=== PATIENT | female | born 2000 | race Caucasian/White ===

== ENCOUNTER 2018-01-27 22:59 | Emergency (ER) | payer OTHER ==
[2018-01-28 00:13] LABS: ABS Basophils 0.1 10^3/ul (0-0.2); ABS Eosinophils 0.3 10^3/ul (0-0.6); ABS Lymphocytes 2.3 10^3/ul (1.0-4.8); ABS Monocytes 0.7 10^3/ul (0-0.8); ABS Neutrophils 4.5 10^3/ul (1.5-7.7); ABS Nucleated RBC 0 10^3/ul; Eosinophil % 3.9 % (0-6); Hematocrit 38 % (35-47); Hemoglobin 12.7 g/dl (12.0-16.0); Lymphocyte % 28.9 % (25-47); Mean Corpuscular HGB Conc 34 g/dl (31-36); Mean Corpuscular Hemoglobin 28 pg (27-31); Mean Corpuscular Volume 82 fL (80-97); Mean Platelet Volume 7.7 um3 (7.4-10.4); Nucleated Red Blood Cells % 0.1; Platelet Count 333 10^3/ul (150-450); Red Blood Count 4.61 10^6/ul (4.0-5.4); Red Cell Distribution Width 15 % (10.5-15); White Blood Count 7.8 10^3/ul (3.5-10.8)
[2018-01-28] MEDS ORDERED: Naproxen TAB* 250 MG PO ONE (00:18)
--- NOTE | 2018-01-28 00:32 | ED ---
Abdominal Pain/Female - HPI Summary HPI Summary: Patient is a 17-year-old female who presents emergency department for left sided pelvic pain times one day. Patient apparently has been having pelvic pain times one month and was seen in the emergency department for similar symptoms. Patient states she scheduled to see MARKETING PRODUCER this week. Patient states this evening her pain increased and is not relieved with Motrin into presents emergency Department. She also notes that she has been having irregular spotting times one week. Denies other vaginal discharge. She currently is on oral contraceptives. Otherwise denies fever, chills, vomiting, diarrhea, urinary symptoms. Symptoms are mild in severity. No current modifying factors. Pain is sharp in nature. - History of Current Complaint Chief Complaint: EDAbdPain Stated Complaint: PELVIC PAIN Time Seen by Provider: 01/27/18 23:52 Hx Obtained From: Patient Pain Intensity: 5 Allergies/Adverse Reactions: Allergies Allergy/AdvReac Type Severity Reaction Status Date / Time No Known Allergies Allergy Verified 01/27/18 23:12 PMH/Surg Hx/FS Hx/Imm Hx Previously Healthy: Yes Endocrine/Hematology History: Denies: Hx Anticoagulant Therapy Cardiovascular History: Denies: Hx Hypertension Infectious Disease History: No Infectious Disease History: Denies: Traveled Outside the [place] in Last 30 Days - Family History Known Family History: Positive: Other - no GI fam hx - Social History Occupation: Student Lives: Dormitory/Roommates Alcohol Use: Occasionally Substance Use Type: Reports: None Smoking Status (MU): Never Smoked Tobacco Review of Systems Constitutional: Negative Negative: Fever, Chills ENT: Negative Cardiovascular: Negative Respiratory: Negative Positive: Abdominal Pain. Negative: Vomiting, Diarrhea, Nausea Positive: other - Vaginal bleeding All Other Systems Reviewed And Are Negative: Yes Physical Exam Triage Information Reviewed: Yes Vital Signs On Initial Exam: Initial Vitals Temp Pulse Resp BP Pulse Ox 99.5 F 72 16 120/79 98 01/27/18 23:09 01/27/18 23:09 01/27/18 23:09 01/27/18 23:09 01/27/18 23:09 Vital Signs Reviewed: Yes Appearance: Positive: Well-Appearing - Pt. lying on bed in NAD. Skin: Positive: Warm, Dry Head/Face: Positive: Normal Head/Face Inspection Eyes: Positive: Normal Neck: Positive: Supple Respiratory/Lung Sounds: Positive: Clear to Auscultation, Breath Sounds Present Cardiovascular: Positive: Normal, RRR Abdomen Description: Positive: Other: - Abd. is soft with marked tenerness to the left lower quadrant. No rebound tenderness or gaurding. Pelvic Exam: Positive: External Exam Normal - Exam performed with female techChiara. External genitalia is unremarkable., Bimanual Exam Normal, No Cerv. Motion Tender, No Masses, Other - Speculum exam reveals a scant amount of brownish discharge from cerivix. Bimanual exam reveals mild tenderness over the left adnexa. No cervical motion tenderness. Neurological: Positive: Normal, CN Intact II-III Psychiatric: Positive: Normal Diagnostics - Vital Signs Vital Signs Temp Pulse Resp BP Pulse Ox 01/27/18 23:09 99.5 F 72 16 120/79 98 - Laboratory Lab Results: Lab Results 01/28/18 Range/Units 00:03 WBC 7.8 (3.5-10.8) 10^3/ul RBC 4.61 (4.0-5.4) 10^6/ul Hgb 12.7 (12.0-16.0) g/dl Hct 38 (35-47) % MCV 82 (80-97) fL MCH 28 (27-31) pg MCHC 34 (31-36) g/dl RDW 15 (10.5-15) % Plt Count 333 (150-450) 10^3/ul MPV 7.7 (7.4-10.4) um3 Neut % (Auto) 57.8 (38-83) % Lymph % (Auto) 28.9 (25-47) % [place] % (Auto) 8.4 H (0-7) % Eos % (Auto) 3.9 (0-6) % Baso % (Auto) 1.0 (0-2) % Absolute Neuts (auto) 4.5 (1.5-7.7) 10^3/ul Absolute Lymphs (auto) 2.3 (1.0-4.8) 10^3/ul Absolute Monos (auto) 0.7 (0-0.8) 10^3/ul Absolute Eos (auto) 0.3 (0-0.6) 10^3/ul Absolute Basos (auto) 0.1 (0-0.2) 10^3/ul Absolute Nucleated RBC 0 10^3/ul Nucleated RBC % 0.1 Result Diagrams: 01/28/18 00:03 01/28/18 00:03 Lab Statement: Any lab studies that have been ordered have been reviewed, and results considered in the medical decision making process. Abdominal Pain Fem Course/Dx - Course Course Of Treatment: Pt. presenting for worsening left sided pelvic pain as well as abnormal uterine bleeding. She is afebrile. She is quite tender to LLQ on exam. Will obtain labs and u/s to evaluate for ovarian flow. Labs are unremarkable. Negative preg. Pelvic exam shows a small amount of discharge without cervical motion tenderness. Cultures obtained. Will wait for culture results. Pt.'s pain has improved after naproxen. U/S IMPRESSION: No adnexal masses are noted. Prominent vascularity surrounding the left adnexa. which could be seen in pelvic congestion syndrome, reading per night radiology. Pt. states she has a f.u apt. with IR this week. Advised to f.u with MARKETING PRODUCER as well. Naproxen rx for pain. Will call if culture results are positive. To return to ER if sxs change or worsen. - Diagnoses Provider Diagnoses: Pelvic pain, Pelvic congestion syndrome Discharge - Sign-Out/Discharge Documenting (check all that apply): Discharge/Admit/Transfer - Discharge Plan Condition: Good Disposition: HOME Prescriptions: Naproxen [Naproxen 500 mg tab] 500 mg PO Q12H #20 tablet Patient Education Materials: Pelvic Pain in Women (ED) Referrals: [facility] [Primary Care Provider] - Danielle Ramirez MD [Medical Doctor] - Additional Instructions: Schedule an appointment with Dr. Foster, MARKETING PRODUCER Tylenol or Motrin for pain as directed Will call if culture results are positive Return to ER if symptoms change or worsen - Billing Disposition and Condition Condition: GOOD Disposition: HOME
[2018-01-28 00:35] LABS: EGFR Non-African American 88.6 (>60)
[2018-01-28 01:22] LABS: Urine Appearance Cloudy; Urine Blood 3+ (Negative); Urine Color Yellow; Urine Ketones Negative (Negative); Urine Protein Negative (Negative); Urine Specific Gravity 1.016 (1.010-1.030); Urine Urobilinogen Negative (Negative)
[2018-01-28 03:09] VITALS: BP 117/73
--- NOTE | 2018-01-28 08:34 | RAD ---
Indication: Left pelvic pain. Real-time sonography of the pelvis was performed. The uterus measures 5.9 x 3.1 x 4.1 cm. Endometrial echo measures 4.1 mm. Right ovary measures 2.0 x 1.2 x 3.0 cm. Left ovary measures 1.9 x 1.1 x 3.1 cm. Doppler interrogation demonstrates flow in both ovaries. Prominent vascularity is noted in the left adnexa. Possibility of pelvic congestion should BE considered. No free fluid is identified. IMPRESSION: No adnexal masses are noted. Prominent vascularity surrounding the left adnexa which could be seen in pelvic congestion syndrome.
--- NOTE | 2018-01-29 17:41 | ED ---
Progress - Progress Note Progress Note: Patient's vaginal swabs returned positive for Bell but negative for Gardnerella. Patient admits she has had some vaginal irritation and was not provided with any medication or education at d/c so a phone call was placed. She is now aware of her diagnosis, treatment and prevention. Diflucan 150 mg one time will be e-rx'd into [facility] on [facility]. She will also start a probiotic as she was recently on amoxicillin which most likely triggered this infection. She will follow-up with [facility] and [facility] in [facility] days if her symptoms persist. Course/Dx - Course Course Of Treatment: Pt. presenting for worsening left sided pelvic pain as well as abnormal uterine bleeding. She is afebrile. She is quite tender to LLQ on exam. Will obtain labs and u/s to evaluate for ovarian flow. Labs are unremarkable. Negative preg. Pelvic exam shows a small amount of discharge without cervical motion tenderness. Cultures obtained. Will wait for culture results. Pt.'s pain has improved after naproxen. U/S IMPRESSION: No adnexal masses are noted. Prominent vascularity surrounding the left adnexa. which could be seen in pelvic congestion syndrome, reading per night radiology. Pt. states she has a f.u apt. with IR this week. Advised to f.u with AIRCRAFT ENGINE INSTALLER as well. Naproxen rx for pain. Will call if culture results are positive. To return to ER if sxs change or worsen. - Diagnoses Provider Diagnoses: Pelvic pain, Pelvic congestion syndrome Discharge - Sign-Out/Discharge Documenting (check all that apply): Post-Discharge Follow Up - Discharge Plan Condition: Good Disposition: HOME Prescriptions: Naproxen [Naproxen 500 mg tab] 500 mg PO Q12H #20 tablet Patient Education Materials: Pelvic Pain in Women (ED) Referrals: [facility] [Primary Care Provider] - Danielle Ramirez MD [Medical Doctor] - Additional Instructions: Schedule an appointment with Dr. Foster, AIRCRAFT ENGINE INSTALLER Tylenol or Motrin for pain as directed Will call if culture results are positive Return to ER if symptoms change or worsen - Billing Disposition and Condition Condition: GOOD Disposition: HOME
== END 2018-01-28 03:08 | disposition home or self-care (01) ==
LOC: ED 22:59
DX: R10.2 Pelvic and perineal pain (principal); N94.89 Other specified conditions associated with female genital organs and menstrual cycle; N93.9 Abnormal uterine and vaginal bleeding, unspecified; R10.9 Unspecified abdominal pain
CPT/HCPCS: 36415; 76830; 76856; 80048; 81003; 81015; 84702; 85025; 87086; 87480; 87491; 87510; 87591; 87661; 99284; A9270-GY

== ENCOUNTER 2018-11-16 04:24 | Emergency (ER) | payer OTHER ==
[2018-11-16] MEDS ORDERED: Al Hydrox/Mg Hydrox/Simet LIQ* 30 ML UDC PO ONE (04:38)
[2018-11-16] MEDS ORDERED: Lidocaine 2% VISCOUS* 15 ML UDC PO ONE (04:38)
--- NOTE | 2018-11-16 04:41 | ED ---
Abdominal Pain/Female - HPI Summary HPI Summary: A 18 y/o female presents to [facility] with a chief complaint of abdominal pain since 18:00 11/15/18. At triage she rated her pain as a 7/10 in severity. She reports that recently she has been constipated and has been taking stool softeners. She also took Tums for her abdominal pain, but her pain still persists. She describes her pain as severe and sharp. She c/o some nausea, but denies dysuria, hematuria and vomiting. She claims that her pain used to be all over, but is now more localized in her abdomen. She has a SHx of an appendectomy. Her LNMP was 11/02/18. She is on control. She denies smoking or drug use. She denies a Hx of ulcers and claims that she has never had a problem like this before. - History of Current Complaint Chief Complaint: EDAbdPain Stated Complaint: ABD PAIN Time Seen by Provider: 11/16/18 04:32 Hx Obtained From: Patient Onset/Duration: Sudden Onset, Lasting Hours, Still Present Timing: Hours Severity Initially: Severe Severity Currently: Severe Pain Intensity: 7 Pain Scale Used: 0-10 Numeric Location: Diffuse Radiates: No Character: Sharp Aggravating Factor(s): Nothing Alleviating Factor(s): Nothing Associated Signs and Symptoms: Positive: Constipation, Nausea. Negative: Fever , Urinary Symptoms, Vomiting Allergies/Adverse Reactions: Allergies Allergy/AdvReac Type Severity Reaction Status Date / Time No Known Allergies Allergy Verified 01/27/18 23:12 PMH/Surg Hx/FS Hx/Imm Hx Endocrine/Hematology History: Denies: Hx Anticoagulant Therapy Cardiovascular History: Denies: Hx Hypertension EENT History: Denies: Hx Deafness - Surgical History Surgery Procedure, Year, and Place: appendectomy Infectious Disease History: No Infectious Disease History: Denies: Traveled Outside the [place] in Last 30 Days - Family History Known Family History: Positive: Other - no GI fam hx - Social History Alcohol Use: Occasionally Substance Use Type: Reports: None Smoking Status (MU): Never Smoked Tobacco Review of Systems Negative: Fever Positive: Abdominal Pain, Nausea, Other - positive: constipation. Negative: Vomiting Negative: dysuria, hematuria All Other Systems Reviewed And Are Negative: Yes Physical Exam - Summary Physical Exam Summary: Appearance: Well-appearing, Well-nourished, lying in bed comfortably Skin: Warm, dry, no obvious rash Eyes: sclera anicteric, no conjunctival pallor ENT: mucous membranes moist, pharynx appears normal Neck: Supple, nontender Respiratory: Clear to auscultation, no signs of respiratory distress Cardiovascular: Normal S1, S2. No murmurs. Normal distal pulses in tibial and radial bilaterally. Abdomen: Soft, nontender, normal active bowel sounds present Musculoskeletal: Normal, Strength/ROM Intact Neurological: A&Ox3, awake and alert, mentation is normal, speech is fluent and appropriate Psychiatric: affect is normal, does not appear anxious or depressed Triage Information Reviewed: Yes Vital Signs On Initial Exam: Initial Vitals Temp Pulse Resp BP Pulse Ox 97.8 F 83 16 137/87 99 11/16/18 04:28 11/16/18 04:28 11/16/18 04:28 11/16/18 04:28 11/16/18 04:28 Vital Signs Reviewed: Yes Diagnostics - Vital Signs Vital Signs Temp Pulse Resp BP Pulse Ox 11/16/18 04:28 97.8 F 83 16 137/87 99 - Laboratory Result Diagrams: 11/16/18 04:41 11/16/18 04:41 Lab Statement: Any lab studies that have been ordered have been reviewed, and results considered in the medical decision making process. Abdominal Pain Fem Course/Dx - Course Course Of Treatment: A 18 y/o female presents to [facility] with a chief complaint of abdominal pain since 18:00 11/15/18. At triage she rated her pain as a 7/10 in severity. She reports that recently she has been constipated and has been taking stool softeners. She also took Tums for her abdominal pain, but her pain still persists. She describes her pain as severe and sharp. She c/o some nausea , but denies dysuria, hematuria and vomiting. She claims that her pain used to be all over, but is now more localized in her abdomen. She has a SHx of an appendectomy. Her LNMP was 11/02/18. She is on control. She denies smoking or drug use. She denies a Hx of ulcers and claims that she has never had a problem like this before. The physical exam was unremarkable. In the ED course the patient was given 30ml Maalox Plus PO and 15ml Lidocaine PO. Bloodwork and chemistries obtained and are WNL. The patient will be discharged with a presciption for Protonix. She is agreeable with this plan. - Diagnoses Provider Diagnoses: Acute abdominal pain Discharge - Sign-Out/Discharge Documenting (check all that apply): Patient Departure - DC Patient Received Moderate/Deep Sedation with Procedure: No - Discharge Plan Condition: Good Disposition: HOME Prescriptions: Pantoprazole TAB * [Protonix TAB*] 40 mg PO DAILY #14 tab Patient Education Materials: Constipation (ED), Acute Abdominal Pain (ED) Referrals: [facility] [Outside] Additional Instructions: For now I'd recommend continuins some type of laxative, avoiding any senna products though. If you feel better once the constipation is improved, you do not need to continue to the prescribed protonix. If your pain worsens, especially if you develop vomiting or fever, we should see you back here. - Billing Disposition and Condition Condition: GOOD Disposition: Home - Attestation Statements Document Initiated by Juliae: Yes Documenting Scribe: Mukesh Camargo Provider For Whom [facility] is Documenting (Include Credential): Brian De Anda MD Scribe Attestation: IMukesh, scribed for Brian De Anda MD on 11/18/18 at 1605. Scribe Documentation Reviewed: Yes Provider Attestation: The documentation as recorded by the Mukesh michelle accurately reflects the service I personally performed and the decisions made by me, Brian De Anda MD Status of Scribe Document: Viewed
[2018-11-16 04:50] LABS: ABS Basophils 0.1 10^3/ul (0-0.2); ABS Eosinophils 0.1 10^3/ul (0-0.6); ABS Lymphocytes 2.5 10^3/ul (1.0-4.8); ABS Monocytes 0.6 10^3/ul (0-0.8); ABS Nucleated RBC 0 10^3/ul; Eosinophil % 1.4 %; Hematocrit 37 % (35-47); Hemoglobin 12.3 g/dl (12.0-16.0); Lymphocyte % 40.1 %; Mean Corpuscular HGB Conc 34 g/dl (31-36); Mean Corpuscular Hemoglobin 27 pg (27-31); Mean Corpuscular Volume 79 fL (80-97); Mean Platelet Volume 8.2 fL (7.4-10.4); Nucleated Red Blood Cells % 0; Platelet Count 264 10^3/ul (150-450); Red Cell Distribution Width 14 % (10.5-15); White Blood Count 6.2 10^3/ul (3.5-10.8)
[2018-11-16 05:04] VITALS: BP 141/95
[2018-11-16 05:10] LABS: Albumin 3.9 g/dL (3.2-5.2); Albumin/Globulin Ratio 1.5 (1-3); BUN/Creatinine Ratio 22.6 (8-20); EGFR African American 148.5 (>60); EGFR Non-African American 122.7 (>60); Globulin 2.6 g/dL (2-4); Potassium 3.7 mmol/L (3.5-5.0); Total Bilirubin 0.2 mg/dL (0.2-1.0); Total Protein 6.5 g/dL (6.4-8.9)
== END 2018-11-16 05:30 | disposition home or self-care (01) ==
LOC: ED 04:24
DX: R10.84 Generalized abdominal pain (principal); K59.00 Constipation, unspecified; R11.0 Nausea
CPT/HCPCS: 36415; 80053; 83690; 85025; 99283; A9270-GY

== ENCOUNTER 2019-11-24 13:08 | Emergency (ER) | payer OTHER ==
[2019-11-24 15:50] VITALS: BP 110/71
--- NOTE | 2019-11-24 16:05 | UC ---
Respiratory Complaint HPI - History of Current Complaint Chief Complaint: UCRespiratory Stated Complaint: RESP COMPLAINT Time Seen by Provider: 11/24/19 15:55 Hx Obtained From: Patient Hx Last Menstrual Period: 10/28/19 Pain Intensity: 7 - Allergies/Home Medications Allergies/Adverse Reactions: Allergies Allergy/AdvReac Type Severity Reaction Status Date / Time No Known Allergies Allergy Verified 11/24/19 15:50 Home Medications: Home Medications Control Po 1 mg PO DAILY WITH MEAL 11/24/18 [History Confirmed 11/24/19] Azithromyxin SABRINA (NF) [Z-Sabrina (Zithromax) 250 mg tabs #6] 2 tab PO .TODAY, THEN 1 DAILY #6 tab 11/24/19 [Rx] Benzonatate CAP* [Tessalon 100 MG CAP*] 100 mg PO TID PRN #21 cap 11/24/19 [Rx] PMH/Surg Hx/FS Hx/Imm Hx Previously Healthy: Yes - Denies significant PMH Other History Of: Negative For: Anticoagulant Therapy - Surgical History Surgical History: Yes Surgery Procedure, Year, and Place: appendectomy - Family History Known Family History: Negative: Respiratory Disease - Social History Occupation: Student Lives: Dormitory/Roommates Alcohol Use: Weekly Substance Use Type: None Smoking Status (MU): Never Smoked Tobacco - Immunization History Vaccination Up to Date: Yes Review of Systems All Other Systems Reviewed And Are Negative: Yes Physical Exam - Summary Physical Exam Summary: GENERAL APPEARANCE: Well developed, well nourished, alert and cooperative, and appears to be in no acute distress. EYES: Conjunctiva clear. No drainage. EARS: External auditory canals and tympanic membranes clear, hearing grossly intact. NOSE: No nasal discharge. THROAT: Pharynx normal No tonsilar inflammation, swelling, exudate, or lesions. Uvula midline. NECK: Neck supple, non-tender without lymphadenopathy. CARDIAC: Normal S1 and S2. No S3, S4 or murmurs. Rhythm is regular. There is no peripheral edema, cyanosis or pallor. Extremities are warm and well perfused. Capillary refill is less than 2 seconds. Peripheral pulses intact. LUNGS: Clear to auscultation without rales, rhonchi, wheezing or diminished breath sounds. ABDOMEN: Positive bowel sounds. Soft, nondistended, nontender. No guarding or rebound. No masses or hepatosplenomegally. MUSKULOSKELETAL: ROM intact to all extremities. No joint erythema or tenderness. Normal muscular development. Normal gait. SKIN: Skin normal color, texture and turgor with no lesions or eruptions. Triage Information Reviewed: Yes Vital Signs: Initial Vital Signs Temp 100.3 F 11/24/19 15:45 Pulse 74 11/24/19 15:45 Resp 16 11/24/19 15:45 BP 110/71 11/24/19 15:45 Pulse Ox 99 11/24/19 15:45 Vital Signs Reviewed: Yes Respiratory Course/Dx - Differential Dx/Diagnosis Differential Diagnosis/HQI/PQRI: Bronchitis, Lower Resp Infection Provider Diagnosis: Acute bronchitis Discharge ED - Sign-Out/Discharge Documenting (check all that apply): Patient Departure All imaging exams completed and their final reports reviewed: No Studies - Discharge Plan Condition: Stable Disposition: HOME Prescriptions: Azithromyxin SABRINA (NF) [Z-Sabrina (Zithromax) 250 mg tabs #6] 2 tab PO .TODAY, THEN 1 DAILY #6 tab Benzonatate CAP* [Tessalon 100 MG CAP*] 100 mg PO TID PRN #21 cap PRN Reason: Cough Patient Education Materials: Acute Bronchitis (ED) Referrals: No Primary Care Phys,NOPCP [Primary Care Provider] - Additional Instructions: Your history and exam are consistent with acute bronchitis which is most often caused by a viral infection however with your low grade fever I am concerned you may have developed a secondary bacterial infection therefore we will start you on an antibiotic. Start azithromycin 2 tabs today then 1 tab a day for then next 4 days. Be aware that the cough with bronchitis may persist for 2-3 weeks even after treatment. Get plenty of rest. Drink plenty of fluids. Run a cool mist humidifer in your room at night. Take over the counter acetaminophen (Tylenol) or ibuprofen (Advil, Motrin) according to directions as needed for pain or fever. Take Tessalon Perles 1 cap every 8 hours as needed for cough. Return here or [facility] in 5-7 days if symptoms do not improve. Seek immediate medical attention in the emergency room if you have fever greater than 100.5 F despite taking acetaminophen or ibuprofen, have chest pain , difficulty breathing, or have any worsening of symptoms. - Billing Disposition and Condition Condition: STABLE Disposition: Home
== END 2019-11-24 16:30 | disposition home or self-care (01) ==
LOC: UCEAST 13:08
DX: J20.9 Acute bronchitis, unspecified (principal)
CPT/HCPCS: 99212; G0463

== ENCOUNTER 2019-12-09 07:29 | Emergency (ER) | payer OTHER ==
[2019-12-09 07:38] VITALS: BP 115/78
--- NOTE | 2019-12-09 07:57 | UC ---
Throat Pain/Nasal Alf HPI - HPI Summary HPI Summary: 19 yo female with sore throat x 3-4 days NO F/C NO nasal congestion Was treated for BRONCHITIS 2 weeks ago Still has a cough from that but it has been IMPROVING and is markedly better NO headache or myalgias no fatigue no n/v/d - History of Current Complaint Chief Complaint: UCGeneralIllness Stated Complaint: THROAT PAIN Time Seen by Provider: 12/09/19 07:43 Hx Obtained From: Patient Hx Last Menstrual Period: November 28 Onset/Duration: Gradual Onset, Lasting Days Severity: Moderate Pain Intensity: 8 Pain Scale Used: 0-10 Numeric Cough: Nonproductive - and rare Associated Signs & Symptoms: Negative: FB Sensation, Drooling, Wheezing, Hoarseness, Sinus Discomfort, Nasal Discharge, Fever, Vomiting, Rash - Epiglottits Risk Factors Epiglottis Risk Factors: Negative - Allergies/Home Medications Allergies/Adverse Reactions: Allergies Allergy/AdvReac Type Severity Reaction Status Date / Time No Known Allergies Allergy Verified 11/24/19 15:50 Home Medications: Home Medications Control Po 1 mg PO DAILY WITH MEAL 11/24/18 [History Confirmed 12/09/19] PMH/Surg Hx/FS Hx/Imm Hx Previously Healthy: Yes Respiratory History: Bronchitis Other History Of: Negative For: Anticoagulant Therapy - Surgical History Surgical History: Yes Surgery Procedure, Year, and Place: appendectomy - Family History Known Family History: Positive: Hypertension Negative: Respiratory Disease - Social History Alcohol Use: Weekly Substance Use Type: None Smoking Status (MU): Never Smoked Tobacco - Immunization History Vaccination Up to Date: Yes Review of Systems All Other Systems Reviewed And Are Negative: Yes Constitutional: Positive: Negative Skin: Positive: Negative Eyes: Positive: Negative ENT: Positive: Sore Throat Respiratory: Positive: Cough - rare Cardiovascular: Positive: Negative Gastrointestinal: Positive: Negative Genitourinary: Positive: Negative Motor: Positive: Negative Neurovascular: Positive: Negative Musculoskeletal: Positive: Negative Neurological/Mental Status: Positive: Negative Psychological: Positive: Negative Physical Exam Triage Information Reviewed: Yes Appearance: Well-Appearing, No Pain Distress, Well-Nourished Vital Signs: Initial Vital Signs Temp 97.3 F 12/09/19 07:34 Pulse 94 12/09/19 07:34 Resp 18 12/09/19 07:34 BP 115/78 03/17/20 07:34 Pulse Ox 99 12/09/19 07:34 Vital Signs Reviewed: Yes Eyes: Positive: Conjunctiva Clear ENT: Positive: Hearing grossly normal, Pharyngeal erythema, TMs normal, Uvula midline. Negative: Nasal congestion, Nasal drainage, Tonsillar swelling, Tonsillar exudate, Trismus, Muffled voice, Hoarse voice, Sinus tenderness Dental: Positive: Percussion Tenderness @ Neck: Positive: Supple, Enlarged Nodes @ - ant cerv Respiratory: Positive: Lungs clear, Normal breath sounds, No respiratory distress, No accessory muscle use Cardiovascular: Positive: RRR, No Murmur Musculoskeletal: Positive: ROM Intact, No Edema Neurological: Positive: Alert Psychological Exam: Normal Skin Exam: Normal Diagnostics - Laboratory Lab Results: strep (-) Throat Pain/Nasal Course/Dx - Differential Dx/Diagnosis Provider Diagnosis: Pharyngitis Discharge ED - Sign-Out/Discharge Documenting (check all that apply): Patient Departure All imaging exams completed and their final reports reviewed: No Studies - Discharge Plan Condition: Stable Disposition: HOME Patient Education Materials: Pharyngitis (ED) Referrals: [facility] [Outside] - If Needed Additional Instructions: you strep test was negative rest fluids tylenol or advil if needed RECHECK FOR NEW OR WORSENING SYMPTOMS RECHECK IN 4-5 DAYS IF NOT BETTER - Billing Disposition and Condition Condition: STABLE Disposition: Home
== END 2019-12-09 08:16 | disposition home or self-care (01) ==
LOC: UCEAST 07:29
DX: J02.9 Acute pharyngitis, unspecified (principal)
CPT/HCPCS: 87651; 99211; G0463